=== PATIENT | male | born 1970 | race African-American/Black ===

== ENCOUNTER 2020-09-25 09:54 | Emergency (ER) | payer SELFPAY ==
[~2020-09-25] VITALS: Ht 175.3 cm; Wt 71.2 kg
[2020-09-25 10:13] VITALS: Ht 175.3 cm; Wt 71.2 kg
[2020-09-25 12:24] VITALS: BP 128/92
== END 2020-09-25 12:24 | disposition home or self-care (01) ==
LOC: ED 09:54
DX: S61.213A Laceration without foreign body of left middle finger without damage to nail, initial encounter (principal); J45.909 Unspecified asthma, uncomplicated; W13.2XXA Fall from, out of or through roof, initial encounter; Y93.89 Activity, other specified; Y92.89 Other specified places as the place of occurrence of the external cause; Y99.8 Other external cause status
CPT/HCPCS: 90715; J2001

== ENCOUNTER 2020-10-02 10:24 | Emergency (ER) | payer SELFPAY ==
[~2020-10-02] VITALS: Ht 175.3 cm; Wt 72.6 kg
[2020-10-02 10:32] VITALS: Ht 175.3 cm; Wt 72.6 kg
[2020-10-02 11:37] VITALS: BP 130/80
== END 2020-10-02 11:30 | disposition home or self-care (01) ==
LOC: ED 10:24
DX: S61.213D Laceration without foreign body of left middle finger without damage to nail, subsequent encounter (principal); J45.909 Unspecified asthma, uncomplicated; W45.8XXD Other foreign body or object entering through skin, subsequent encounter